=== PATIENT | male | born 1955 | race Caucasian/White ===

== ENCOUNTER 2025-09-20 06:24 | Emergency (ER) | payer MEDICARE, BC ==
[~2025-09-20] VITALS: Ht 180.3 cm; Wt 110.0 kg
[2025-09-20 06:27] VITALS: TEMP 97.6
--- NOTE | 2025-09-20 07:05 | Physician Documentation ---
History of Present Illness ~ Chief Complaint: Sore Throat Stated Complaint: SORE THROAT Time Seen by MD: 07:00 HPI Sore throat since this morning, no fevers, no swallowing difficulty, no facial swelling. Medication Reconciliation Allergies: Coded Allergies: No Known Allergies (Unverified , 09/20/25) Review of Systems All Other Systems at this time: Reviewed and Negative Physical Exam Vital Signs: RN Vital Signs have been reviewed: Yes, Temperature: 97.6, Source: Temporal, Heart Rate: 86, Respiratory Rate: 15, BP: 161/81, Pulse Oximetry: 99, Weight: 110.000 Physical Exam Gen: no distress HEENT: PERRL, EOMI no neck or facial swelling, uvula midline; no tonsillar hypertrophy or exudate noted Pulm: normal WOB, no distress Cardiac: deferred Abd: deferred Skin: w/d/i MSK: no deformity Neuro: nonfocal Psych: normal affect Progress Results/Orders Results/Orders Orders - [place] ADAMES MD Dexamethasone Inj (Decadron 10mg/Ml Inj) (09/20/25 07:02) Ketorolac Trometh 30mg/Ml Vial (Toradol (09/20/25 07:05) Vital Signs 09/20/25 06:27 Temp 97.6 Pulse 86 Resp 15 B/P (MAP) 161/81 Pulse Ox 99 Medical Decision Making Additional information obtaine: N/A Findings 70 year old male with likely viral pharyngitis. Steroid, NSAID, reassurance. Ear Diff. Dx: Considerations: Include: Other Eye Diff. Dx: Considerations: Include: Other Nose Diff. Dx: Considerations: Include: Other Tooth Diff. Dx: Considerations: Include: Other Throat Diff Dx: Considerations: Include: Other Additional Comment ddx = viral pharyngitis, strep throat, bacterial pharyngitis, tonsillitis Departure Disposition: HOME / SELF CARE / HOMELESS Impression: Primary Impression: URI (upper respiratory infection) Condition: Stable Discharge Instructions: Pharyngitis Referrals: NO PRIMARY CARE PROVIDER (PCP) Education Educated: Patient Educated regarding: diagnosis, treatment, prognosis, need for follow up Signature Scribe Signature: . Attestation: . VIR[place] ADAMES MD Sep 20, 2025 07:05
[2025-09-20] MEDS: ketorolac trometh 30MG/ML vial 30 MG/ML VIAL IM ONE (07:11)
[2025-09-20] MEDS: dexamethasone sod phosphate 10mg/ml inj PO STA (07:12)
[2025-09-20 07:19] VITALS: BP 152/79; PULSE 86; RESP 20; O2SAT 96
== END 2025-09-20 07:20 | disposition home or self-care (01) ==
LOC: ER 06:28
DX: J06.9 Acute upper respiratory infection, unspecified (principal)
CPT/HCPCS: 96372; 99283; J1100; J1885; J7030